=== PATIENT | female | born 1980 | race Caucasian/White ===

== ENCOUNTER 2019-12-28 15:29 | Outpatient (CLI) | payer OTHER, SELFPAY ==
--- NOTE | ~2019-12-28 | MM_ITS ---
EXAMINATION: MM screening beata BI w chelsie HISTORY: Screening TECHNIQUE: Craniocaudal and mediolateral oblique 3-D tomosynthesis images were obtained and synthetic 2-D images were generated. CAD analysis was submitted and interpreted. COMPARISON: No prior mammogram is available for comparison at this institution. BREAST PARENCHYMAL COMPOSITION: Breast composed of scattered areas of fibroglandular density FINDINGS: There is no evidence of suspicious mass, calcification, or architectural distortion to sugg est malignancy in either breast. There has been no suspicious interval change. IMPRESSION: 1. No mammographic evidence of malignancy. 2. Recommend routine screening mammography in one year. BI-RADS Category 1: Negative Reviewed, dictated and finalized at location A.
== END 2019-12-28 15:30 | disposition home or self-care (01) ==
LOC: ANHIMG 15:34
PROVIDERS: PCP Obstetrics & Gynecology; Visit Provider Obstetrics & Gynecology
DX: Z12.31 Encounter for screening mammogram for malignant neoplasm of breast (principal)
CPT/HCPCS: 77063; 77067

== ENCOUNTER → 2021-03-20 10:45 | Outpatient (CLI) | payer OTHER, SELFPAY ==
--- NOTE | ~2021-03-20 | XR_ITS ---
EXAMINATION: XR barium swallow EXAM DATE: 03/20/2021 12:09 INDICATION: Dysphagia. Intermittent episodes of feeling like throat is closing. TECHNIQUE: Standard thick followed by thin contrast barium esophagram examination was performed by Dr Anmol Martínez, radiologist. Pulsed dose reduction fluoroscopy was used with fluoroscopic time of 0.7 . The DAP for this procedure was 1.1 Gycm2. A total of 141 images obtained for the exam. There is no prior study for comparison. FINDINGS: The pharynx is symmetric and without evidence of mass lesion or mucosal irregularity. Ther e is no esophageal stricture or mass identified. There are no esophageal diverticula. Small sliding gastroesophageal hiatal hernia. IMPRESSION: Small sliding gastroesophageal hiatal hernia. Reviewed, dictated and finalized at location B.
== END ==
PROVIDERS: PCP Physician Assistant; Visit Provider Physician Assistant
DX: F45.8 Other somatoform disorders (principal); K44.9 Diaphragmatic hernia without obstruction or gangrene
CPT/HCPCS: 74220

== ENCOUNTER → 2021-03-23 12:13 | Outpatient (CLI) | payer OTHER, SELFPAY ==
--- NOTE | ~2021-03-23 | US_ITS ---
EXAMINATION: US thyroid EXAM DATE: 03/23/2021 12:33 INDICATION: Other somatoform disorder, Feeling of lump in throat. TECHNIQUE: Multiple grayscale and Doppler images of the thyroid were obtained (by a technologist who performed the scan) and subsequently reviewed. Individual nodules and recommendations may be reporte d in accordance with TI-RADS system as designated by the 2017 ACR White Paper TI-RADS committee. The re is no prior study for comparison. FINDINGS: The right thyroid lobe measures 6.3 x 2.6 x 2.1 cm, moderately enlarged. Left thyroid lobe measures 5 .1 x 1.8 x 1.4 cm, moderately enlarged. There are scattered renal nodules, largest on the right. Right thyroid lobe largest nodule measures 3.2 x 2.2 x 1.6 cm, solid (2 points), hypoechoic (2 points ), wider than tall, smooth well defined margin, containing macrocalcification(s) causing acoustic sha dowing (1 point), category TR4 for this nodule. This is large enough to recommend ultrasound-guided biopsy. Largest nodule on the left measures up to 1.0 cm. IMPRESSION: 1. Multinodular goiter. 2. Ultrasound-guided FNA of largest right thyroid lobe nodule. Reviewed, dictated and finalized at location A.
== END ==
PROVIDERS: PCP Physician Assistant; Visit Provider Physician Assistant
DX: F45.8 Other somatoform disorders (principal); E04.2 Nontoxic multinodular goiter
CPT/HCPCS: 76536

== ENCOUNTER 2021-06-26 10:29 | Outpatient (CLI) | payer OTHER, SELFPAY ==
--- NOTE | ~2021-06-26 | US_ITS ---
EXAMINATION: US FNA w image guidance DATE: 06/26/2021 11:23 INDICATION: Nontoxic multinodular goiter TECHNIQUE: A time-out was performed to verify the patient's name, date of , and procedure to be performed . The procedure and its benefits and risks were discussed with the patient. Risks specifically discus sed included bleeding and infection. The patient understood the risks and agreed to proceed. The neck was prepped and draped in the usual sterile manner. 3 mL 1% lidocaine was used for local anesthesia . 6 passes were made with a 25G needle into the lesion. Appropriate needle location was documented with continuous sonographic guidance. The specimens were passed to the cytotechnologist in the room. A sterile bandage was applied. There were no immediate complications. FINDINGS: Grayscale ultrasound images demonstrate biopsy needles advanced into the solid components of a 2.8 x 1.6 x 1.7 cm mixed solid and cystic nodule with dense central calcifications in the mid inferior righ t thyroid. IMPRESSION: 1. Successful ultrasound-guided fine needle aspiration of a 2.8 cm TI RADS 4 right thyroid nodule of concern. Reviewed, dictated and finalized at location A. E [employer] IMPRESSION: 1. Successful ultrasound-guided fine needle aspiration of a 2.8 cm TI RADS 4 r ight thyroid nodule of concern.
== END 2021-06-26 10:30 | disposition home or self-care (01) ==
PROVIDERS: PCP Physician Assistant; Visit Provider Otolaryngology
DX: E04.2 Nontoxic multinodular goiter (principal)
CPT/HCPCS: 10005; 88173; 88305

== ENCOUNTER 2022-03-25 17:06 | Outpatient (CLI) | payer OTHER, SELFPAY ==
--- NOTE | ~2022-03-25 | MM_ITS ---
EXAMINATION: MM screening beata BI w chelsie HISTORY: Screening TECHNIQUE: Craniocaudal and mediolateral oblique 3-D tomosynthesis images were obtained and synthetic 2-D images were generated. CAD analysis was submitted and interpreted. COMPARISON: 12/28/2019 BREAST PARENCHYMAL COMPOSITION: Breast composed of scattered areas of fibroglandular density FINDINGS: There is no evidence of suspicious mass, calcification, or architectural distortion to sugg est malignancy in either breast. There has been no suspicious interval change. IMPRESSION: 1. No mammographic evidence of malignancy. 2. Recommend routine screening mammography in one year. BI-RADS Category 1: Negative Reviewed, dictated and finalized at location A.
== END 2022-03-25 17:07 | disposition home or self-care (01) ==
PROVIDERS: PCP Physician Assistant; Visit Provider Obstetrics & Gynecology
DX: Z12.31 Encounter for screening mammogram for malignant neoplasm of breast (principal)
CPT/HCPCS: 77063; 77067

== ENCOUNTER 2023-07-26 08:50 | Outpatient (CLI) | payer OTHER, SELFPAY ==
--- NOTE | ~2023-07-26 | XR_ITS ---
EXAMINATION: XR abdomen/kub 1V INDICATION: Left ureteral stone TECHNIQUE: Supine views of the abdomen were obtained on three radiographs. COMPARISON: None FINDINGS: There is a 3 mm stone in the left kidney lower pole. No definite stones are identified in t he right kidney, along the expected courses of the ureters, or within the urinary bladder. There are multiple phleboliths of the pelvis. There is mild osteoarthritis of the hips. The bowel gas pattern i s normal. IMPRESSION: 1. Left nephrolithiasis. Reviewed, dictated and finalized at location L. F SONOGRAPHER IMPRESSION: 1. Left nephrolithiasis.
== END 2023-07-26 08:51 ==
LOC: MICIMG 08:52
PROVIDERS: PCP Nurse Practitioner Family; Visit Provider Nurse Practitioner Family
DX: N20.1 Calculus of ureter (principal); N20.0 Calculus of kidney
CPT/HCPCS: 74018

== ENCOUNTER 2024-01-16 15:07 | Outpatient (CLI) | payer OTHER, SELFPAY ==
--- NOTE | ~2024-01-16 | US_ITS ---
EXAMINATION: US venous doppler [facility] DATE: 01/16/2024 15:38 INDICATION: Left lower limb pain and swelling. Varicose veins of left lower limb. TECHNIQUE: Grayscale ultrasound images without and with compression and Doppler ultrasound images of the left lower extremity veins were obtained. COMPARISON: None. FINDINGS: The visualized portions of left common femoral vein, profunda (deep) femoral vein, femoral vein, popl iteal vein, peroneal veins, posterior tibial veins, and greater saphenous vein outflow are patent. Th ere are thrombosed superficial veins in the patient's area of concern. IMPRESSION: 1. No deep venous thrombosis. 2. Thrombosed superficial veins in the patient's area of concern. Reviewed, dictated and finalized at location A.
== END 2024-01-16 15:08 ==
LOC: MICIMG 15:09
PROVIDERS: PCP Family Medicine Sports Medicine; Visit Provider Family Medicine Sports Medicine
DX: I83.812 Varicose veins of left lower extremity with pain (principal); I80.02 Phlebitis and thrombophlebitis of superficial vessels of left lower extremity; M79.89 Other specified soft tissue disorders
CPT/HCPCS: 93971